=== PATIENT | female | born 1945 | race Asian ===

== ENCOUNTER 2019-10-17 19:20 | Emergency (ER) | payer OTHER ==
[2019-10-17] MEDS ORDERED: morphine CARPU-JECT 4 MG/1 ML DISP.SYRIN IVPUSH ONE (19:46)
[2019-10-17] MEDS ORDERED: ONDANSETRON 4 MG/2 ML VIAL IVPB ONE (19:47)
[2019-10-17 19:59] VITALS: BP 147/76; PULSE 78; TEMP 98.3; BMI 29.6
[2019-10-17] MEDS ORDERED: SODIUM CHLORIDE 1,000 ML IV SCH (20:00)
[2019-10-17] MEDS ORDERED: ONDANSETRON 4 MG/2 ML VIAL ONE (20:24)
[2019-10-17 21:14] LABS: BASO % 0.1 % (0-2.0); EOS % 0.6 % (0-4.5); HEMATOCRIT 42.9 % (32.4-45.2); HEMOGLOBIN 14.8 GM/dl (10.7-15.3); LYMPH % 19.4 % (8-40); MCH 31.6 pg (25.7-33.7); MCHC 34.4 g/dl (32.0-36.0); MEAN CELL VOLUME 91.9 fl (80-96); MEAN PLT VOLUME 9.8 fl (7.5-11.1); MONO % 7.7 % (3.8-10.2); NEUT % 72.2 % (42.8-82.8); PLATELET COUNT 301 K/MM3 (134-434); RBC 4.67 M/mm3 (3.60-5.2); RDW 11.6 % (11.6-15.6); WHITE BLOOD COUNT 10.6 K/mm3 (4.0-10.8)
[2019-10-17 21:22] LABS: ALBUMIN 4.3 g/dl (3.4-5.0); BILIRUBIN,TOTAL 1.6 mg/dl (0.2-1); CREATININE 0.7 mg/dl (0.55-1.3); TOT PROT 7.2 g/dl (6.4-8.2)
[2019-10-17 21:30] LABS: EPITHELIAL CELLS FEW /hpf
[2019-10-17] MEDS ORDERED: PIPERACILLIN/TAZOB 4.5 GM 4.5 GM in DEXTROSE 5%-WATER 100 ML IVPB ONE (22:51)
[2019-10-17] MEDS ORDERED: PIPERACILLIN/TAZOBACTAM 4.5 GM VIAL IVPB ONE (22:52)
--- NOTE | 2019-10-17 22:53 | PDOC ---
Documentation entered by Naresh Garcia SCRIBE, acting as scribe for Lisa Lazo MD. Lisa Lazo MD: This documentation has been prepared by the Jose mccormick Aiswarya, SCRIBE, under my direction and personally reviewed by me in its entirety. I confirm that the documentation accurately reflects all work, treatment, procedures, and medical decision making performed by me. History of Present Illness - General Chief Complaint: Diarrhea Stated Complaint: ABD PAIN AND DIARRHEA Time Seen by Provider: 10/17/19 19:31 History Source: Patient Exam Limitations: No Limitations - History of Present Illness Initial Comments: 10/17/19 20:09 The patient is a 73 year old female, with no significant PMH, who presents to the emergency department with abdominal pain that began a few days ago. The patient states pain is located to the epigastric area and pain is exacerbated when eating. She endorses associated symptoms of nausea, vomiting and diarrhea. The patient denies chest pain, shortness of breath, headache and dizziness.Denies fever, chills and constipation. Denies dysuria, frequency, urgency and hematuria. PAST MEDICAL HISTORY: no significant history PAST SURGICAL HISTORY: no significant history FAMILY HISTORY: no pertinent history SOCIAL HISTORY: Pt lives with family and is employed. MEDICATIONS: reviewed ALLERGIES: As per nursing notes Adult ROS General: No fevers or chills, no weakness, no weight loss HEENT: No change in vision. No sore throat,. No ear pain CardioVascular: No chest pain or shortness of breath Respiratory:No cough, or wheezing. Gastrointestinal: + nausea. +vomiting. +diarrhea. No constipation, No rectal bleeding Genitourinary: No dysuria, hematuria, or frequency Musculoskeletal: No joint or muscle pain or swelling Neurologic: No headache, vertigo, dizziness or loss of consciousness Skin: No rashes or easy bruising All other systems reviewed and normal Adult Exam: General: Well-nourished well-developed individual, no acute distress Chest: Nontender to palpation Cardiac: S1-S2 normal, regular rate and rhythm, no murmurs rubs or gallops Respiratory: Lungs clear to auscultation bilateral Abdomen:+mildly distended, bowel sounds present but slightly decreased. RUQ and epigastric tenderness on palpation. No guarding or rebound. Skin: No rashes Neuro: Alert and oriented x3 Psych: Normal mood and affect 10/17/19 22:50 Reevaluation. Patient said her pain is now resolved she feels much better is able to tolerate p.o.'s. Patient CAT scan was positive for gallstones with questionable cholecystitis. There also was questionable pancreatitis. Patient' s liver and enzymes were moderately elevated. 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 10/17/19 22:53 Past History - Past Medical History Allergies/Adverse Reactions: Allergies Allergy/AdvReac Type Severity Reaction Status Date / Time No Known Allergies Allergy Verified 10/17/19 19:40 Home Medications: Ambulatory Orders Amlodipine Besylate [Norvasc -] 5 mg PO DAILY 10/17/19 Amoxicillin/Potassium Clav [Augmentin 500-125 Tablet] 1 each PO BID #20 tablet 10/17/19 Aspirin [Aspirin EC] 81 mg PO DAILY 10/17/19 Atorvastatin Ca [Lipitor] 20 mg PO DAILY 10/17/19 Ezetimibe [Zetia] 10 mg PO DAILY 10/17/19 Metoprolol Tartrate [Lopressor] 50 mg PO DAILY 10/17/19 Oxycodone HCl/Acetaminophen [Percocet 5-325 mg Tablet] 1 tab PO Q4H PRN #15 tablet MDD 8 10/17/19 metroNIDAZOLE [Flagyl -] 500 mg PO TID #30 tablet 10/17/19 *Physical Exam - Vital Signs Last Vital Signs Temp Pulse Resp BP Pulse Ox 98.3 F 78 15 147/76 97 10/17/19 19:22 10/17/19 19:22 10/17/19 19:22 10/17/19 19:22 10/17/19 19:22 ED Treatment Course - LABORATORY CBC & Chemistry Diagram: 10/17/19 20:50 10/17/19 20:50 - ADDITIONAL ORDERS Additional order review: Laboratory Results 10/17/19 10/17/19 10/17/19 20:50 20:50 20:50 Sodium Potassium Chloride Carbon Dioxide Anion Gap BUN Creatinine Est GFR (CKD-EPI)AfAm Est GFR (CKD-EPI)NonAf Random Glucose Lactic Acid 1.3 Calcium Magnesium Cancelled Total Bilirubin AST ALT Alkaline Phosphatase Troponin I < 0.03 Total Protein Albumin Lipase > 95456 H Urine Color Urine Appearance Urine pH Urine Protein Urine Glucose (UA) Urine Ketones Urine Blood Urine Nitrite Urine Bilirubin Urine Urobilinogen Ur Leukocyte Esterase Urine RBC Urine WBC Ur Transition Epith Cell 10/17/19 10/17/19 10/17/19 20:50 20:45 20:10 Sodium 136 Potassium 4.0 Chloride 105 Carbon Dioxide 22 Anion Gap 9 BUN 20.0 H Creatinine 0.7 Est GFR (CKD-EPI)AfAm 98.23 Est GFR (CKD-EPI)NonAf 84.75 Random Glucose 127 H Lactic Acid 1.4 Calcium 9.0 Magnesium 2.0 Total Bilirubin 1.6 H AST 662 H ALT 329 H Alkaline Phosphatase 271 H Troponin I Total Protein 7.2 Albumin 4.3 Lipase Urine Color Yellow Urine Appearance Clear Urine pH 5.5 Urine Protein Negative Urine Glucose (UA) Negative Urine Ketones Negative Urine Blood Trace-lysed Urine Nitrite Negative Urine Bilirubin Negative Urine Urobilinogen 0.2 Ur Leukocyte Esterase 1+ Urine RBC 2-5 Urine WBC 5-10 Ur Transition Epith Cell Few 10/17/19 20:10 Sodium Potassium Chloride Carbon Dioxide Anion Gap BUN Creatinine Est GFR (CKD-EPI)AfAm Est GFR (CKD-EPI)NonAf Random Glucose Lactic Acid Calcium Magnesium Total Bilirubin AST ALT Alkaline Phosphatase Troponin I Total Protein Albumin Lipase Cancelled Urine Color Urine Appearance Urine pH Urine Protein Urine Glucose (UA) Urine Ketones Urine Blood Urine Nitrite Urine Bilirubin Urine Urobilinogen Ur Leukocyte Esterase Urine RBC Urine WBC Ur Transition Epith Cell 10/17/19 20:50 RBC 4.67 MCV 91.9 MCHC 34.4 RDW 11.6 MPV 9.8 Neutrophils % 72.2 Lymphocytes % 19.4 Monocytes % 7.7 Eosinophils % 0.6 Basophils % 0.1 - RADIOLOGY Radiology Studies Ordered: Category Date Time Status ABDOMEN & PELVIS CT WITH CONTR [CT] Stat CT Scan 10/17/19 19:31 Taken - Medications Given in the ED: ED Medications Discontinued Medications Generic Name Dose Route Start Last Admin Trade Name Freq PRN Reason Stop Dose Admin Ondansetron HCl 8 mg 10/17/19 19:47 10/17/19 20:25 Zofran Injection IVPB 10/17/19 19:48 8 mg ONCE ONE Administration Discharge - Discharge Information Problems reviewed: Yes Clinical Impression/Diagnosis: Cholecystitis Condition: Good Disposition: HOME - Admission No - Additional Discharge Information Prescriptions: Amoxicillin/Potassium Clav [Augmentin 500-125 Tablet] 1 each PO BID #20 tablet metroNIDAZOLE [Flagyl -] 500 mg PO TID #30 tablet Oxycodone HCl/Acetaminophen [Percocet 5-325 mg Tablet] 1 tab PO Q4H PRN #15 tablet MDD 8 PRN Reason: Pain - Follow up/Referral - Patient Discharge Instructions Additional Instructions: It is very important that you follow-up with your doctors in the morning regarding your abnormal liver enzymes and possible pancreatitis as well as cholecystitis. Take the antibiotics Augmentin 1 tablet twice a day and Flagyl 1 tablet 3 times a day. Tylenol or Motrin as needed for pain. If you need something stronger I have sent a prescription to your pharmacy for Percocet you can take 1 or 2 tablets every 4-6 hours as needed. If anything changes you have a fever greater or equal to 101, your vomiting, or worsening it is important that you return or go to the nearest emergency department. Return to the emergency department immediately with ANY new, persistent or worsening symptoms. Continue any medications as previously prescribed by your physician. You should follow up with your primary doctor as soon as possible regarding today's emergency department visit. . Please make sure your doctor reviews the results of your emergency evaluation. Thank you for coming to the Emergency Department today for your care. It was a pleasure to see you today. Please note that your evaluation is INCOMPLETE until you follow-up with your doctor. - Post Discharge Activity
--- NOTE | 2019-10-18 09:46 | EKG ---
Test Reason : Blood Pressure : / mmHG Vent. Rate : 071 BPM Atrial Rate : 071 BPM P-R Int : 144 ms QRS Dur : 080 ms QT Int : 386 ms P-R-T Axes : 082 034 027 degrees QTc Int : 419 ms SINUS RHYTHM WITH MARKED SINUS ARRHYTHMIA OTHERWISE NORMAL ECG NO PREVIOUS ECGS AVAILABLE Confirmed by ISAIAH SWEET MD ([id number]) on 10/18/2019 9:45:41 AM Referred By: Confirmed By:ISAIAH SWEET MD
== END 2019-10-17 23:49 | disposition home or self-care (01) ==
LOC: FER 19:20
PROC: 3E033GC Introduction of Other Therapeutic Substance into Peripheral Vein, Percutaneous Approach (ICD-10-PCS; principal; 2019-10-17)
PROC: 3E03329 Introduction of Other Anti-infective into Peripheral Vein, Percutaneous Approach (ICD-10-PCS; 2019-10-17)
DX: K81.9 Cholecystitis, unspecified (principal)
CPT/HCPCS: 36415; 74177-TC; 80053; 81003; 81015; 82150; 83605; 83690; 83735; 84484; 85025; 87086; 93005; 99283-25; J7030; Q9967